=== PATIENT | male | born 1955 | race African-American/Black ===

== ENCOUNTER 2016-07-18 13:57 | Inpatient (IN) | payer OTHER ==
[2016-07-18 18:19] VITALS: BMI 25.9
--- NOTE | 2016-07-18 20:42 | HP ---
CIWA Score - CIWA Score Nausea/Vomitin-No Nausea/No Vomiting Muscle Tremors: 4-Moderate,w/Arms Extend Anxiety: 4-Mod. Anxious/Guarded Agitation: 4-Moderately Restless Paroxysmal Sweats: 3 Orientation: 1-Uncertain about Date Tacttile Disturbances: 0-None Auditory Disturbances: 0-None Visual Disturbances: 0-None Headache: 0-None Present CIWA-Ar Total Score: 16 Admission ROS BHS - HPI Chief Complaint: C/O WITHDRAWAL SX'S. SEEKING DETOX TXMENT. Allergies/Adverse Reactions: Allergies Allergy/AdvReac Type Severity Reaction Status Date / Time No Known Allergies Allergy Verified 07/18/16 19:40 History of Present Illness: 60 Y.O. MALE WITH ALCOHOL AND COCAINE DEPENDENCE ADMITTED TO DETOX. THIS IS CLIENTS FIRST VISIT HERE. STATES LAST DETOX / REHAB TXMENT WAS YEARS AGO. REPORTS LONGEST CLEAN TIME 2.5 YEARS WHILE IN [facility]IDENT[facility]. Exam Limitations: No Limitations - Ebola screening Have you traveled outside of the country in the last 21 days: No Have you had contact with anyone from an Ebola affected area: No Have you been sick,other than usual withdrawal symptoms: No Do you have a fever: No - Review of Systems Constitutional: No Symptoms Reported EENT: reports: No Symptoms Reported Respiratory: reports: No Symptoms reported Cardiac: reports: No Symptoms Reported GI: reports: No Symptoms Reported : reports: No Symptoms Reported Musculoskeletal: reports: No Symptoms Reported Integumentary: reports: No Symptoms Reported Neuro: reports: No Symptoms reported Endocrine: reports: No Symptoms Reported Hematology: reports: No Symptoms Reported Psychiatric: reports: Depressed Other Systems: Reviewed and Negative Patient History - Patient Medical History Hx Anemia: No Hx Asthma: No Hx Chronic Obstructive Pulmonary Disease (COPD): No Hx Cancer: No Hx Cardiac Disorders: No Hx Congestive Heart Failure: No Hx Hypertension: Yes (NOT ON MEDS) Hx Hypercholesterolemia: No Hx Pacemaker: No HX Cerebrovascular Accident: No Hx Seizures: No Hx Dementia: No Hx Diabetes: No Hx Gastrointestinal Disorders: No Hx Liver Disease: No Hx Genitourinary Disorders: No Hx Sexually Transmitted Disorders: No Hx Renal Disease (ESRD): No Hx Thyroid Disease: No Hx Human Immunodeficiency Virus (HIV): No Hx Hepatitis C: No Hx Depression: Yes Hx Suicide Attempt: No Hx Bipolar Disorder: No Hx Schizophrenia: No - Patient Surgical History Past Surgical History: No Hx Neurologic Surgery: No Hx Cataract Extraction: No Hx Cardiac Surgery: No Hx Lung Surgery: No Hx Breast Surgery: No Hx Breast Biopsy: No Hx Abdominal Surgery: No Hx Appendectomy: No Hx Cholecystectomy: No Hx Genitourinary Surgery: No Hx Section: No Hx Orthopedic Surgery: No Anesthesia Reaction: No - PPD History Previous Implant?: Yes Documented Results: Negative w/o proof Implanted On Prior R Admission?: No PPD to be Administered?: Yes - Smoking Cessation Smoking history: Current every day smoker Have you smoked in the past 12 months: Yes Aproximately how many cigarettes per day: 4 Cigars Per Day: 0 Hx Chewing Tobacco Use: No Initiated information on smoking cessation: Yes 'Breaking Loose' booklet given: 07/18/16 - Substance & Tx. History Hx Alcohol Use: Yes Hx Substance Use: Yes Substance Use Type: Alcohol, Cocaine Hx Substance Use Treatment: Yes ([facility]) - Substances Abused Alcohol Route: Oral Frequency: Daily Amount used: liquor- 1 pint, beer- 4 (40oz) Age of first use: 23 Date of Last Use: 07/17/16 Crack Route: Smoking Frequency: Daily Amount used: 2 bags Age of first use: 15 Date of Last Use: 07/16/16 Family Disease History - Family Disease History Family History: Denies Admission Physical Exam S - Vital Signs Vital Signs: Vital Signs - 24 hr 07/18/16 18:17 Temperature 99.2 F Pulse Rate 91 H Respiratory 20 Rate Blood Pressure 189/94 - Physical General Appearance: Yes: Disheveled, Alcohol on Breath, Tremorous, Anxious, Other (UNKEPT) HEENTM: Yes: EOMI, Normocephalic, Normal Voice, [place], Pharynx Normal, Other ( EDENTULOUS) Respiratory: Yes: Chest Non-Tender, Lungs Clear, Normal Breath Sounds, No Respiratory Distress, No Accessory Muscle Use Neck: Yes: No masses,lesions,Nodules, Supple, Trachea in good position Breast: Yes: Breast Exam Deferred Cardiology: Yes: Regular Rhythm, Regular Rate, S1, S2 Abdominal: Yes: Normal Bowel Sounds, Non Tender, Soft Genitourinary: Yes: Within Normal Limits Back: Yes: Normal Inspection Musculoskeletal: Yes: full range of Motion, Gait Steady Extremities: Yes: Normal Capillary Refill, Normal Range of Motion, Non-Tender, Tremors Neurological: Yes: Alert, Motor Strength 5/5 Integumentary: Yes: Dry, Warm, Other (EXTREMELY DRY FLAKING SKIN HYPERPIGMENTED PATCHES TO BLE) Lymphatic: Yes: Within Normal Limits - Diagnostic (1) Alcohol dependence with uncomplicated withdrawal Current Visit: Yes Status: Chronic (2) Cocaine dependence, uncomplicated Current Visit: Yes Status: Chronic (3) Nicotine dependence Current Visit: Yes Status: Chronic Qualifiers: Nicotine product type: cigarettes Substance use status: uncomplicated Qualified Code(s): F17.210 - Nicotine dependence, cigarettes, uncomplicated (4) HTN (hypertension) Current Visit: Yes Status: Chronic Qualifiers: Hypertension type: essential hypertension Qualified Code(s): I10 - Essential (primary) hypertension Cleared for Admission S - Detox or Rehab [facility] Level of Care: Medically Managed Detox Regimen/Protocol: Librium S Breath Alcohol Content Breath Alcohol Content: 0 Urine Drug Screen - Results Drug Screen Negative: No Urine Drug Screen Results: BHUPINDER-Cocaine
[2016-07-18] MEDS ORDERED: P-EPHED 60MG/TRIPROLIDI 2.5MG TABLET PO PRN (20:55)
[2016-07-18] MEDS ORDERED: ACETAMINOPHEN 325 MG TABLET (FP) PO PRN (20:55)
[2016-07-18] MEDS ORDERED: guaiFENesin/D-METHORPHAN HB 10 ML UNIT-DOSE CUPS PO PRN (20:55)
[2016-07-18] MEDS ORDERED: diphenhydrAMINE HCL 50 MG CAPSULE PO PRN (20:55)
[2016-07-18] MEDS ORDERED: NICOTINE POLACRILEX 2 MG GUM BC PRN (20:55)
[2016-07-18] MEDS ORDERED: hydrOXYzine PAMOATE 50 MG CAPSULE (FP) PO PRN (20:55)
[2016-07-18] MEDS ORDERED: MENTHOL/PHENOL 1 EACH UD MM PRN (20:55)
[2016-07-18] MEDS ORDERED: IBUPROFEN 400 MG TABLET (FP) PO PRN (20:55)
[2016-07-18] MEDS ORDERED: LOPERAMIDE HCL 2 MG CAPSULE PO PRN (20:55)
[2016-07-18] MEDS ORDERED: chlordiazePOXIDE HCL 25 MG CAPSULE PO PRN (20:55)
[2016-07-18] MEDS ORDERED: MAGNESIUM HYDROX 2400MG/30ML ORAL SUSPENSION 30 ML CUP PO PRN (20:55)
[2016-07-18] MEDS ORDERED: MAG HYDROX/AL HYDROX/SIMETH 30 ML UNIT-DOSE CUP PO PRN (20:55)
[2016-07-18] MEDS ORDERED: MAGNESIUM CITRATE 300 ML BOTTLE PO PRN (20:55)
[2016-07-18] MEDS ORDERED: cloNIDine HCL 0.1 MG TABLET PO PRN (20:57)
[2016-07-18] MEDS: THIAMINE HCL 100 MG TABLET (FP) PO SCH (21:46)
[2016-07-18] MEDS: NICOTINE 14 MG/24 HOURS TOPICAL PATCH TD SCH (21:46)
[2016-07-18] MEDS: chlordiazePOXIDE HCL 25 MG CAPSULE PO SCH (22:45)
[2016-07-18 23:25] LABS: URINE APPEARANCE CLEAR; URINE BLOOD NEGATIVE (NEGATIVE); URINE COLOR AMBER; URINE GLUCOSE (UA) NEGATIVE (NEGATIVE); URINE KETONE TRACE (NEGATIVE); URINE LEUK ESTERASE NEGATIVE (NEGATIVE); URINE NITRITE NEGATIVE (NEGATIVE); URINE UROBILINOGEN 2.0 E.U/dl E.U./dl (0.2-1.0)
[2016-07-18 23:29] LABS: URINE PROTEIN 3+ (NEGATIVE)
[2016-07-18 23:33] LABS: URINE HYALINE CAST 9 /lpf; URINE MUCUS MANY; URINE RBC 2 /hpf (0-3); URINE WBC 2 /hpf (3-5)
[2016-07-19] MEDS: chlordiazePOXIDE HCL 25 MG CAPSULE PO SCH ×4 (05:38→22:42)
[2016-07-19 10:02] LABS: MCH 30.9 pg (25.7-33.7); MCHC 33.2 g/dl (32.0-35.9); MEAN PLT VOLUME 8.1 fl (7.5-11.1); PLATELET COUNT 217 K/MM3 (134-434); RDW 15.2 % (11.9-15.9); WHITE BLOOD COUNT 6.4 K/mm3 (4.0-10.0)
[2016-07-19] MEDS: PRENATAL VITAMINS W/ FOLIC ACID TABLET (FP) PO SCH (10:33)
[2016-07-19] MEDS: NICOTINE 14 MG/24 HOURS TOPICAL PATCH TD SCH (10:35)
[2016-07-19 10:53] LABS: ALBUMIN 3.1 g/dl (3.4-5.0); ALK PHOS 61 U/L (45-117); ANION GAP 10 (8-16); BILIRUBIN,TOTAL 0.6 mg/dL (0.2-1.0); CALCIUM 8.6 mg/dL (8.5-10.1); CO2 27 mmol/L (21-32); COCKROFT - GAULT 92.95; CREATININE 0.9 mg/dL (0.7-1.3); GLUCOSE,RANDOM 103 mg/dL (74-106); SGOT/AST 30 U/L (15-37); SGPT/ALT 26 U/L (12-78); TOT PROT 6.5 g/dl (6.4-8.2)
[2016-07-19] MEDS ORDERED: cloNIDine HCL 0.1 MG TABLET PO PRN (11:23)
--- NOTE | 2016-07-19 11:26 | PN ---
S CIWA - CIWA Score Nausea/Vomitin-No Nausea/No Vomiting Muscle Tremors: 4-Moderate,w/Arms Extend Anxiety: 4-Mod. Anxious/Guarded Agitation: 3 Paroxysmal Sweats: 3 Orientation: 0-Oriented Tacttile Disturbances: 0-None Auditory Disturbances: 0-None Visual Disturbances: 0-None Headache: 0-None Present CIWA-Ar Total Score: 14 BHS Progress Note (SOAP) Subjective: Anxiety,tremors,sweating,interrupted sleep,restless Objective: 07/19/16 11:25 Vital Signs - 8 hr 07/19/16 07/19/16 07/19/16 03:30 06:44 07:07 Temperature 98.9 F 98.9 F Pulse Rate 77 77 Respiratory 18 18 18 Rate Blood Pressure 182/99 137/78 07/19/16 09:50 Temperature 96.4 F L Pulse Rate 80 Respiratory 18 Rate Blood Pressure 150/77 Laboratory Tests 07/18/16 07/19/16 07/19/16 22:02 08:00 08:00 WBC 6.4 RBC 3.71 L Hgb 11.4 L Hct 34.5 L MCV 93.0 MCHC 33.2 RDW 15.2 Plt Count 217 MPV 8.1 Sodium 140 Potassium 3.3 L Chloride 103 Carbon Dioxide 27 Anion Gap 10 BUN 14 Creatinine 0.9 Creat Clearance w eGFR > 60 Random Glucose 103 Calcium 8.6 Total Bilirubin 0.6 AST 30 ALT 26 Alkaline Phosphatase 61 Total Protein 6.5 Albumin 3.1 L Urine Color Kimmy Urine Appearance Clear Urine pH 5.0 Ur Specific [place] 1.034 Urine Protein 3+ H Urine Glucose (UA) Negative Urine Ketones Trace H Urine Blood Negative Urine Nitrite Negative Urine Bilirubin 2.0 Urine Urobilinogen 2.0 e.u/dl Ur Leukocyte Esterase Negative Urine RBC 2 Urine WBC 2 Ur Epithelial Cells Rare Hyaline Casts 9 Urine Mucus Many labs noted Assessment: 07/19/16 11:25 Withdrawal sx. Plan: Continue detox
--- NOTE | 2016-07-19 12:45 | CONSULT ---
[facility] Psychiatric Consult - Data Date of interview: 07/19/16 Admission source: [facility] Identifying data: First admission to [facility] for this 60 y/o AA male seeking detox treatment for alcohol and cocaine (crack) dependence.Patient is single without children,domiciled,unemployed and supported on Public Assistance. Substance Abuse History: - Smoking Cessation. Smoking history: Current every day smoker. Have you smoked in the past 12 months: Yes. Aproximately how many cigarettes per day: 4. Cigars Per Day: 0. Hx Chewing Tobacco Use: No. Initiated information on smoking cessation: Yes. 'Breaking Loose' booklet given : 07/18/16. - Substance & Tx. History. Hx Alcohol Use: Yes. Hx Substance Use : Yes. Substance Use Type: Alcohol, Cocaine. Hx Substance Use Treatment: Yes ( [facility]). - Substances Abused. Alcohol. Route: Oral. Frequency: Daily. Amount used: liquor- 1 pint, beer- 4 (40oz). Age of first use: 23. Date of Last Use: 07/17/16. Crack. Route: Smoking. Frequency: Daily. Amount used: 2 bags. Age of first use: 15. Date of Last Use: 07/16/16. Confirmed by patient. Medical History: Hypertension. Psychiatric History: Patient denies. Physical/Sexual Abuse/Trauma History: No history. Additional Comment: Urine Drug Screen Results: BHUPINDER-Cocaine.Noted. Mental Status Exam - Mental Status Exam Alert and Oriented to: Time, Place, Person Cognitive Function: Grossly Intact Patient Appearance: Unkempt, Disheveled Mood: Withdrawn, Hopeful Affect: Mood Congruent Patient Behavior: Fatigued, Appropriate, Cooperative Speech Pattern: Clear Voice Loudness: Normal Thought Process: Goal Oriented Thought Disorder: Not Present Hallucinations: Denies Suicidal Ideation: Denies Homicidal Ideation: Denies Insight/Judgement: Poor Sleep: Well Appetite: Good Muscle strength/Tone: Normal Gait/Station: Normal Psychiatric Findings - Problem List ([place] 1, 2,3) (1) Alcohol dependence with uncomplicated withdrawal Current Visit: Yes Status: Acute (2) Cocaine dependence, uncomplicated Current Visit: Yes Status: Acute (3) Nicotine dependence Current Visit: Yes Status: Acute Qualifiers: Nicotine product type: cigarettes Substance use status: uncomplicated Qualified Code(s): F17.210 - Nicotine dependence, cigarettes, uncomplicated (4) HTN (hypertension) Current Visit: Yes Status: Chronic Qualifiers: Hypertension type: essential hypertension Qualified Code(s): I10 - Essential (primary) hypertension - Initial Treatment Plan Initial Treatment Plan: Psychoeducation.Detoxification.Observation.
[2016-07-19] MEDS: POTASSIUM CHLORIDE TABS 20 MEQ TABLET.ER (FP) PO SCH ×2 (13:00→22:42)
[2016-07-19] MEDS: amLODIPine BESYLATE 10 MG TABLET (FP) PO SCH (13:00)
--- NOTE | 2016-07-19 16:14 | EKG ---
Test Reason : Blood Pressure : / mmHG Vent. Rate : 078 BPM Atrial Rate : 078 BPM P-R Int : 158 ms QRS Dur : 088 ms QT Int : 398 ms P-R-T Axes : 044 039 034 degrees QTc Int : 453 ms NORMAL SINUS RHYTHM VOLTAGE CRITERIA FOR LEFT VENTRICULAR HYPERTROPHY ABNORMAL ECG NO PREVIOUS ECGS AVAILABLE Confirmed by CHERI JERONIMO MD ([id number]) on 07/19/2016 4:14:22 PM Referred By: Confirmed By:CHERI JERONIMO MD
[2016-07-19] MEDS: THIAMINE HCL 100 MG TABLET (FP) PO SCH (22:42)
[2016-07-20] MEDS: chlordiazePOXIDE HCL 25 MG CAPSULE PO SCH ×3 (05:37→17:19)
[2016-07-20] MEDS: amLODIPine BESYLATE 10 MG TABLET (FP) PO SCH (10:33)
[2016-07-20] MEDS: NICOTINE 14 MG/24 HOURS TOPICAL PATCH TD SCH (10:33)
[2016-07-20] MEDS: PRENATAL VITAMINS W/ FOLIC ACID TABLET (FP) PO SCH (10:33)
[2016-07-20] MEDS: POTASSIUM CHLORIDE TABS 20 MEQ TABLET.ER (FP) PO SCH ×2 (10:33→22:38)
--- NOTE | 2016-07-20 12:28 | PN ---
S CIWA - CIWA Score Nausea/Vomitin-No Nausea/No Vomiting Muscle Tremors: 4-Moderate,w/Arms Extend Anxiety: 3 Agitation: 3 Paroxysmal Sweats: 3 Orientation: 0-Oriented Tacttile Disturbances: 0-None Auditory Disturbances: 0-None Visual Disturbances: 0-None Headache: 0-None Present CIWA-Ar Total Score: 13 BHS Progress Note (SOAP) Subjective: Anxiety,tremors,sweating,interrupted sleep,restless Objective: 07/20/16 12:27 Vital Signs - 8 hr 07/20/16 07/20/16 06:47 09:33 Temperature 98.4 F 98.3 F Pulse Rate 77 99 H Respiratory 18 20 Rate Blood Pressure 157/94 146/88 Laboratory Tests 07/18/16 07/19/16 07/19/16 22:02 08:00 08:00 WBC 6.4 RBC 3.71 L Hgb 11.4 L Hct 34.5 L MCV 93.0 MCHC 33.2 RDW 15.2 Plt Count 217 MPV 8.1 Sodium 140 Potassium 3.3 L Chloride 103 Carbon Dioxide 27 Anion Gap 10 BUN 14 Creatinine 0.9 Creat Clearance w eGFR > 60 Random Glucose 103 Calcium 8.6 Total Bilirubin 0.6 AST 30 ALT 26 Alkaline Phosphatase 61 Total Protein 6.5 Albumin 3.1 L Urine Color Kimmy Urine Appearance Clear Urine pH 5.0 Ur Specific [place] 1.034 Urine Protein 3+ H Urine Glucose (UA) Negative Urine Ketones Trace H Urine Blood Negative Urine Nitrite Negative Urine Bilirubin 2.0 Urine Urobilinogen 2.0 e.u/dl Ur Leukocyte Esterase Negative Urine RBC 2 Urine WBC 2 Ur Epithelial Cells Rare Hyaline Casts 9 Urine Mucus Many RPR Titer 07/19/16 08:00 WBC RBC Hgb Hct MCV MCHC RDW Plt Count MPV Sodium Potassium Chloride Carbon Dioxide Anion Gap BUN Creatinine Creat Clearance w eGFR Random Glucose Calcium Total Bilirubin AST ALT Alkaline Phosphatase Total Protein Albumin Urine Color Urine Appearance Urine pH Ur Specific [place] Urine Protein Urine Glucose (UA) Urine Ketones Urine Blood Urine Nitrite Urine Bilirubin Urine Urobilinogen Ur Leukocyte Esterase Urine RBC Urine WBC Ur Epithelial Cells Hyaline Casts Urine Mucus RPR Titer Nonreactive labs noted start k-dur Assessment: 07/20/16 12:27 Withdrawal sx. Plan: Continue detox
[2016-07-20 16:40] LABS: URINE APPEARANCE CLEAR; URINE BILIRUBIN NEGATIVE (NEGATIVE); URINE BLOOD NEGATIVE (NEGATIVE); URINE COLOR YELLOW; URINE GLUCOSE (UA) NEGATIVE (NEGATIVE); URINE KETONE NEGATIVE (NEGATIVE); URINE LEUK ESTERASE NEGATIVE (NEGATIVE); URINE NITRITE NEGATIVE (NEGATIVE); URINE PROTEIN NEGATIVE (NEGATIVE); URINE UROBILINOGEN NEGATIVE E.U./dl (0.2-1.0)
[2016-07-20] MEDS: THIAMINE HCL 100 MG TABLET (FP) PO SCH (22:37)
[2016-07-20] MEDS: chlordiazePOXIDE 5 MG CAPSULE PO SCH (22:37)
[2016-07-21] MEDS: chlordiazePOXIDE 5 MG CAPSULE PO SCH ×3 (06:24→17:25)
--- NOTE | 2016-07-21 10:32 | PN ---
BHS Progress Note (SOAP) Subjective: Anxiety,tremors,sweating,interrupted sleep,restless Objective: 07/21/16 10:31 Vital Signs - 8 hr 07/21/16 07/21/16 07/21/16 03:30 07:02 07:55 Temperature 97.7 F Pulse Rate 86 99 H Respiratory 18 20 Rate Blood Pressure 161/92 165/86 07/21/16 10:11 Temperature 98.7 F Pulse Rate 94 H Respiratory 20 Rate Blood Pressure 144/81 Laboratory Last Values WBC 6.4 K/mm3 (4.0-10.0) 07/19/16 08:00 RBC 3.71 M/mm3 (4.00-5.60) L 07/19/16 08:00 Hgb 11.4 GM/dL (11.7-16.9) L 07/19/16 08:00 Hct 34.5 % (35.4-49) L 07/19/16 08:00 MCV 93.0 fl (80-96) 07/19/16 08:00 MCHC 33.2 g/dl (32.0-35.9) 07/19/16 08:00 RDW 15.2 % (11.9-15.9) 07/19/16 08:00 Plt Count 217 K/MM3 (134-434) 07/19/16 08:00 MPV 8.1 fl (7.5-11.1) 07/19/16 08:00 Sodium 140 mmol/L (136-145) 07/19/16 08:00 Potassium 3.3 mmol/L (3.5-5.1) L 07/19/16 08:00 Chloride 103 mmol/L (98-107) 07/19/16 08:00 Carbon Dioxide 27 mmol/L (21-32) 07/19/16 08:00 Anion Gap 10 (8-16) 07/19/16 08:00 BUN 14 mg/dL (7-18) 07/19/16 08:00 Creatinine 0.9 mg/dL (0.7-1.3) 07/19/16 08:00 Creat Clearance w eGFR > 60 (>60) 07/19/16 08:00 Random Glucose 103 mg/dL (74-106) 07/19/16 08:00 Calcium 8.6 mg/dL (8.5-10.1) 07/19/16 08:00 Total Bilirubin 0.6 mg/dL (0.2-1.0) 07/19/16 08:00 AST 30 U/L (15-37) 07/19/16 08:00 ALT 26 U/L (12-78) 07/19/16 08:00 Alkaline Phosphatase 61 U/L (45-117) 07/19/16 08:00 Total Protein 6.5 g/dl (6.4-8.2) 07/19/16 08:00 Albumin 3.1 g/dl (3.4-5.0) L 07/19/16 08:00 Urine Color Yellow 07/20/16 16:32 Urine Appearance Clear 07/20/16 16:32 Urine pH 5.0 (5.0-8.0) 07/20/16 16:32 Ur Specific [place] 1.019 (1.001-1.035) 07/20/16 16:32 Urine Protein Negative (NEGATIVE) 07/20/16 16:32 Urine Glucose (UA) Negative (NEGATIVE) 07/20/16 16:32 Urine Ketones Negative (NEGATIVE) 07/20/16 16:32 Urine Blood Negative (NEGATIVE) 07/20/16 16:32 Urine Nitrite Negative (NEGATIVE) 07/20/16 16:32 Urine Bilirubin Negative (NEGATIVE) 07/20/16 16:32 Urine Urobilinogen Negative E.U./dl (0.2-1.0) 07/20/16 16:32 Ur Leukocyte Esterase Negative (NEGATIVE) 07/20/16 16:32 Urine RBC 2 /hpf (0-3) 07/18/16 22:02 Urine WBC 2 /hpf (3-5) 07/18/16 22:02 Ur Epithelial Cells Rare /hpf (FEW) 07/18/16 22:02 Hyaline Casts 9 /lpf 07/18/16 22:02 Urine Mucus Many 07/18/16 22:02 RPR Titer Nonreactive (NONREACTIVE) 07/19/16 08:00 labs noted Assessment: 07/21/16 10:32 Withdrawal sx. Plan: Continue detox
[2016-07-21] MEDS: amLODIPine BESYLATE 10 MG TABLET (FP) PO SCH (10:50)
[2016-07-21] MEDS: PRENATAL VITAMINS W/ FOLIC ACID TABLET (FP) PO SCH (10:50)
[2016-07-21] MEDS: POTASSIUM CHLORIDE TABS 20 MEQ TABLET.ER (FP) PO SCH ×2 (10:50→22:43)
[2016-07-21] MEDS: NICOTINE 14 MG/24 HOURS TOPICAL PATCH TD SCH (10:53)
[2016-07-21] MEDS: THIAMINE HCL 100 MG TABLET (FP) PO SCH (22:43)
[2016-07-21] MEDS: chlordiazePOXIDE HCL 10 MG CAPSULE PO SCH (22:43)
[2016-07-22] MEDS: chlordiazePOXIDE HCL 10 MG CAPSULE PO SCH ×2 (06:12→11:41)
--- NOTE | 2016-07-22 09:30 | DS ---
[facility] Detox Discharge Summary Admission Date: 07/18/16 Discharge Date: 07/22/16 - History Present History: Alcohol Dependence, Cocaine Dependence Additional Comments: DETOX COMPLETED.ALERT O X 3, NAD. Pertinent Past History: HTN - Physical Exam Results Vital Signs: Vital Signs Temperature 98.0 F 07/22/16 06:55 Pulse Rate 84 07/22/16 06:55 Respiratory Rate 18 07/22/16 06:55 Blood Pressure 154/89 07/22/16 06:55 O2 Sat by Pulse Oximetry (%) Pertinent Admission Physical Exam Findings: WITHDRAWAL SX Laboratory Last Values WBC 6.4 K/mm3 (4.0-10.0) 07/19/16 08:00 RBC 3.71 M/mm3 (4.00-5.60) L 07/19/16 08:00 Hgb 11.4 GM/dL (11.7-16.9) L 07/19/16 08:00 Hct 34.5 % (35.4-49) L 07/19/16 08:00 MCV 93.0 fl (80-96) 07/19/16 08:00 MCHC 33.2 g/dl (32.0-35.9) 07/19/16 08:00 RDW 15.2 % (11.9-15.9) 07/19/16 08:00 Plt Count 217 K/MM3 (134-434) 07/19/16 08:00 MPV 8.1 fl (7.5-11.1) 07/19/16 08:00 Sodium 140 mmol/L (136-145) 07/19/16 08:00 Potassium 3.3 mmol/L (3.5-5.1) L 07/19/16 08:00 Chloride 103 mmol/L (98-107) 07/19/16 08:00 Carbon Dioxide 27 mmol/L (21-32) 07/19/16 08:00 Anion Gap 10 (8-16) 07/19/16 08:00 BUN 14 mg/dL (7-18) 07/19/16 08:00 Creatinine 0.9 mg/dL (0.7-1.3) 07/19/16 08:00 Creat Clearance w eGFR > 60 (>60) 07/19/16 08:00 Random Glucose 103 mg/dL (74-106) 07/19/16 08:00 Calcium 8.6 mg/dL (8.5-10.1) 07/19/16 08:00 Total Bilirubin 0.6 mg/dL (0.2-1.0) 07/19/16 08:00 AST 30 U/L (15-37) 07/19/16 08:00 ALT 26 U/L (12-78) 07/19/16 08:00 Alkaline Phosphatase 61 U/L (45-117) 07/19/16 08:00 Total Protein 6.5 g/dl (6.4-8.2) 07/19/16 08:00 Albumin 3.1 g/dl (3.4-5.0) L 07/19/16 08:00 Urine Color Yellow 07/20/16 16:32 Urine Appearance Clear 07/20/16 16:32 Urine pH 5.0 (5.0-8.0) 07/20/16 16:32 Ur Specific [place] 1.019 (1.001-1.035) 07/20/16 16:32 Urine Protein Negative (NEGATIVE) 07/20/16 16:32 Urine Glucose (UA) Negative (NEGATIVE) 07/20/16 16:32 Urine Ketones Negative (NEGATIVE) 07/20/16 16:32 Urine Blood Negative (NEGATIVE) 07/20/16 16:32 Urine Nitrite Negative (NEGATIVE) 07/20/16 16:32 Urine Bilirubin Negative (NEGATIVE) 07/20/16 16:32 Urine Urobilinogen Negative E.U./dl (0.2-1.0) 07/20/16 16:32 Ur Leukocyte Esterase Negative (NEGATIVE) 07/20/16 16:32 Urine RBC 2 /hpf (0-3) 07/18/16 22:02 Urine WBC 2 /hpf (3-5) 07/18/16 22:02 Ur Epithelial Cells Rare /hpf (FEW) 07/18/16 22:02 Hyaline Casts 9 /lpf 07/18/16 22:02 Urine Mucus Many 07/18/16 22:02 RPR Titer Nonreactive (NONREACTIVE) 07/19/16 08:00 KDUR REPLACEMENT TREATMENT GIVEN. - Treatment Hospital Course: Detox Protocol Followed, Detoxed Safely, Responded well, Discharged Condition Good, Rehab Referral Accepted Patient has Accepted a Rehab Referral to: [facility] - Medication Discharge Medications: Ambulatory Orders NK [No Known Home Medication] 07/18/16 - Diagnosis (1) Alcohol dependence with uncomplicated withdrawal Current Visit: Yes Status: Acute (2) Cocaine dependence, uncomplicated Current Visit: Yes Status: Acute (3) Hypokalemia Current Visit: Yes Status: Acute (4) Nicotine dependence Current Visit: Yes Status: Acute Qualifiers: Nicotine product type: cigarettes Substance use status: in withdrawal Qualified Code(s): F17.213 - Nicotine dependence, cigarettes, with withdrawal (5) HTN (hypertension) Current Visit: Yes Status: Chronic Qualifiers: Hypertension type: essential hypertension Qualified Code(s): I10 - Essential (primary) hypertension - AMA Did Patient Leave Against Medical Advice: No
[2016-07-22 10:37] VITALS: BP 129/77; PULSE 101; TEMP 97.5
[2016-07-22] MEDS: PRENATAL VITAMINS W/ FOLIC ACID TABLET (FP) PO SCH (10:55)
[2016-07-22] MEDS: POTASSIUM CHLORIDE TABS 20 MEQ TABLET.ER (FP) PO SCH (10:56)
[2016-07-22] MEDS: amLODIPine BESYLATE 10 MG TABLET (FP) PO SCH (10:56)
[2016-07-22] MEDS: NICOTINE 14 MG/24 HOURS TOPICAL PATCH TD SCH (10:56)
== END 2016-07-22 12:45 | disposition other institution (70) | DRG 774 ==
LOC: YASAS 13:57 → Y3N 19:52
PROVIDERS: ADMIT Internal Medicine; ATTEND Internal Medicine
PROC: HZ2ZZZZ Detoxification Services for Substance Abuse Treatment (ICD-10-PCS; principal; 2016-07-22)
DX: F10.230 Alcohol dependence with withdrawal, uncomplicated (principal); F14.20 Cocaine dependence, uncomplicated; F17.210 Nicotine dependence, cigarettes, uncomplicated; E87.6 Hypokalemia; I10 Essential (primary) hypertension
CPT/HCPCS: 36415; 80053; 81003; 81015; 85027; 86593; 93005; 93010

== ENCOUNTER 2016-07-22 12:53 | Inpatient (IN) | payer OTHER ==
--- NOTE | 2016-07-22 14:06 | HP ---
Psychiatrist Admission - Data Date of interview: 07/22/16 Admission source: 6N Identifying data: This is the first [facility] admission for this 60 years old Black male, unemployed on public assistance, domiciled Medical History: Significant for Hypertension. Smokes 4 cigarettes daily Psychiatric History: Denies history of previous psychiatric treatment Physical/Sexual Abuse/Trauma History: Denies history of emotional, physical or sexual abuse as well as DV relationship Additional Comment: Reports history of 3-4 misdemeanor arrests. Denies being on probation bat present Allergies/Adverse Reactions: Allergies Allergy/AdvReac Type Severity Reaction Status Date / Time No Known Allergies Allergy Verified 07/18/16 19:40 Date of last physical exam: 07/18/16 Concur with the findings of this exam: Yes - Substance Abuse/Tx History Hx Alcohol Use: Yes Hx Substance Use: Yes Substance Use Type: Alcohol (Started drinking alcohol at age 23, consumes one pint of liquor & 4x 40oz of beer daily. Last drink on 07/17/16), Cocaine (Started smoking crack cocaine at age 15, consumes 2 bags daily. Last smoked on 07/16/16) Hx Substance Use Treatment: Yes (2 previous detox & 3 inpt rehab) - Admission Criteria Previous failed treatment: Yes Poor recovery environment: Yes Comorbidities: Yes Lacks judgement: Yes Mental Status Exam - Mental Status Exam Alert and Oriented to: Time, Place, Person Cognitive Function: Fair Patient Appearance: Disheveled Mood: Hopeful, Euthymic Patient Behavior: Cooperative Speech Pattern: Clear Voice Loudness: Normal Thought Process: Intact Thought Disorder: Not Present Hallucinations: Denies Suicidal Ideation: Denies Homicidal Ideation: Denies Insight/Judgement: Fair Sleep: Well Appetite: Good Muscle strength/Tone: Normal Gait/Station: Normal Psychiatric Findings - Problem List ([place] 1, 2,3) (1) Alcohol dependence with uncomplicated withdrawal Current Visit: No Status: Acute (2) Cocaine dependence, uncomplicated Current Visit: No Status: Acute (3) Nicotine dependence Current Visit: No Status: Acute Qualifiers: Nicotine product type: cigarettes Substance use status: in withdrawal Qualified Code(s): F17.213 - Nicotine dependence, cigarettes, with withdrawal (4) HTN (hypertension) Current Visit: No Status: Chronic Qualifiers: Hypertension type: essential hypertension Qualified Code(s): I10 - Essential (primary) hypertension - Initial Treatment Plan Initial Treatment Plan: Monitor progress
[2016-07-22] MEDS ORDERED: ACETAMINOPHEN 325 MG TABLET (FP) PO PRN (15:57)
[2016-07-22] MEDS ORDERED: LOPERAMIDE HCL 2 MG CAPSULE PO PRN (15:57)
[2016-07-22] MEDS ORDERED: guaiFENesin/D-METHORPHAN HB 10 ML UNIT-DOSE CUPS PO PRN (15:57)
[2016-07-22] MEDS ORDERED: MENTHOL/PHENOL 1 EACH UD MM PRN (15:57)
[2016-07-22] MEDS ORDERED: P-EPHED 60MG/TRIPROLIDI 2.5MG TABLET PO PRN (15:57)
[2016-07-22] MEDS ORDERED: MAG HYDROX/AL HYDROX/SIMETH 30 ML UNIT-DOSE CUP PO PRN (15:57)
[2016-07-22] MEDS ORDERED: MAGNESIUM HYDROX 2400MG/30ML ORAL SUSPENSION 30 ML CUP PO PRN (15:57)
[2016-07-22] MEDS ORDERED: hydrOXYzine PAMOATE 50 MG CAPSULE (FP) PO PRN (15:57)
[2016-07-22] MEDS ORDERED: IBUPROFEN 400 MG TABLET (FP) PO PRN (15:57)
[2016-07-22] MEDS ORDERED: MAGNESIUM CITRATE 300 ML BOTTLE PO PRN (15:57)
--- NOTE | 2016-07-22 16:04 | HP ---
ANGÉLICA MASON Rehab Assess/Revision - Admission History Admitted to Rehab from: [facility] Date of Admission to Rehab: 07/22/16 - Vital signs Vital Signs: Vital Signs Period Temp Pulse Resp BP Sys/Vasquez Pulse Ox Last 24 Hr 99.3 F 97 138/72 - Findings Detox History & Physical reviewed: Yes Concur with findings: Yes Comments/Additional Findings: for rehab as protocol
[2016-07-22] MEDS: THIAMINE HCL 100 MG TABLET (FP) PO SCH (21:49)
[2016-07-23] MEDS: PRENATAL VITAMINS W/ FOLIC ACID TABLET (FP) PO SCH (10:07)
[2016-07-23] MEDS: THIAMINE HCL 100 MG TABLET (FP) PO SCH (23:17)
[2016-07-24] MEDS: PRENATAL VITAMINS W/ FOLIC ACID TABLET (FP) PO SCH (09:53)
[2016-07-24] MEDS: THIAMINE HCL 100 MG TABLET (FP) PO SCH (21:35)
[2016-07-25] MEDS: PRENATAL VITAMINS W/ FOLIC ACID TABLET (FP) PO SCH (09:49)
--- NOTE | 2016-07-25 11:22 | PN ---
S Progress Note Note: history of htn on medication,last taken 2 years ago,will give hydrochlorothiazide 25 mgs po daily,will repeat cmp in am
[2016-07-25] MEDS: HYDROCHLOROTHIAZIDE 25 MG TABLET (FP) PO SCH (12:01)
[2016-07-25] MEDS: THIAMINE HCL 100 MG TABLET (FP) PO SCH ×2 (22:26→22:38)
[2016-07-26] MEDS: HYDROCHLOROTHIAZIDE 25 MG TABLET (FP) PO SCH (09:53)
[2016-07-26] MEDS: PRENATAL VITAMINS W/ FOLIC ACID TABLET (FP) PO SCH (09:53)
[2016-07-26 11:01] LABS: ALBUMIN 3.9 g/dl (3.4-5.0); ALK PHOS 67 U/L (45-117); ANION GAP 10 (8-16); BILIRUBIN,TOTAL 0.2 mg/dL (0.2-1.0); CALCIUM 9.6 mg/dL (8.5-10.1); CO2 29 mmol/L (21-32); COCKROFT - GAULT 87.69; GLUCOSE,RANDOM 104 mg/dL (74-106); SGOT/AST 30 U/L (15-37); SGPT/ALT 38 U/L (12-78); TOT PROT 7.8 g/dl (6.4-8.2)
[2016-07-26] MEDS: THIAMINE HCL 100 MG TABLET (FP) PO SCH (21:09)
[2016-07-27] MEDS: PRENATAL VITAMINS W/ FOLIC ACID TABLET (FP) PO SCH (10:00)
[2016-07-27] MEDS: HYDROCHLOROTHIAZIDE 25 MG TABLET (FP) PO SCH (10:00)
[2016-07-27] MEDS: THIAMINE HCL 100 MG TABLET (FP) PO SCH (21:40)
[2016-07-27] MEDS: diphenhydrAMINE HCL 50 MG CAPSULE PO PRN (21:40)
[2016-07-28] MEDS: PRENATAL VITAMINS W/ FOLIC ACID TABLET (FP) PO SCH (10:26)
[2016-07-28] MEDS: HYDROCHLOROTHIAZIDE 25 MG TABLET (FP) PO SCH (10:26)
[2016-07-28] MEDS: diphenhydrAMINE HCL 50 MG CAPSULE PO PRN (21:39)
[2016-07-28] MEDS: THIAMINE HCL 100 MG TABLET (FP) PO SCH (21:39)
[2016-07-29] MEDS: HYDROCHLOROTHIAZIDE 25 MG TABLET (FP) PO SCH (09:47)
[2016-07-29] MEDS: PRENATAL VITAMINS W/ FOLIC ACID TABLET (FP) PO SCH (09:47)
[2016-07-29] MEDS: THIAMINE HCL 100 MG TABLET (FP) PO SCH (21:51)
[2016-07-29] MEDS: diphenhydrAMINE HCL 50 MG CAPSULE PO PRN (21:51)
[2016-07-30] MEDS: PRENATAL VITAMINS W/ FOLIC ACID TABLET (FP) PO SCH (09:54)
[2016-07-30] MEDS: HYDROCHLOROTHIAZIDE 25 MG TABLET (FP) PO SCH (09:54)
[2016-07-30] MEDS: diphenhydrAMINE HCL 50 MG CAPSULE PO PRN (21:38)
[2016-07-30] MEDS: THIAMINE HCL 100 MG TABLET (FP) PO SCH (21:38)
[2016-07-31] MEDS: HYDROCHLOROTHIAZIDE 25 MG TABLET (FP) PO SCH (09:49)
[2016-07-31] MEDS: PRENATAL VITAMINS W/ FOLIC ACID TABLET (FP) PO SCH (09:49)
[2016-07-31] MEDS: THIAMINE HCL 100 MG TABLET (FP) PO SCH (22:14)
[2016-08-01] MEDS: HYDROCHLOROTHIAZIDE 25 MG TABLET (FP) PO SCH (09:50)
[2016-08-01] MEDS: PRENATAL VITAMINS W/ FOLIC ACID TABLET (FP) PO SCH (09:50)
[2016-08-01] MEDS: THIAMINE HCL 100 MG TABLET (FP) PO SCH (21:36)
[2016-08-01] MEDS: diphenhydrAMINE HCL 50 MG CAPSULE PO PRN (21:36)
[2016-08-02] MEDS: PRENATAL VITAMINS W/ FOLIC ACID TABLET (FP) PO SCH (10:31)
[2016-08-02] MEDS: HYDROCHLOROTHIAZIDE 25 MG TABLET (FP) PO SCH (10:31)
[2016-08-02] MEDS: diphenhydrAMINE HCL 50 MG CAPSULE PO PRN (21:48)
[2016-08-02] MEDS: THIAMINE HCL 100 MG TABLET (FP) PO SCH (21:48)
[2016-08-03] MEDS: HYDROCHLOROTHIAZIDE 25 MG TABLET (FP) PO SCH (10:04)
[2016-08-03] MEDS: PRENATAL VITAMINS W/ FOLIC ACID TABLET (FP) PO SCH (10:04)
[2016-08-03] MEDS: THIAMINE HCL 100 MG TABLET (FP) PO SCH (21:41)
[2016-08-03] MEDS: diphenhydrAMINE HCL 50 MG CAPSULE PO PRN (21:41)
[2016-08-04] MEDS: HYDROCHLOROTHIAZIDE 25 MG TABLET (FP) PO SCH (10:38)
[2016-08-04] MEDS: PRENATAL VITAMINS W/ FOLIC ACID TABLET (FP) PO SCH (10:38)
[2016-08-04] MEDS: diphenhydrAMINE HCL 50 MG CAPSULE PO PRN (21:33)
[2016-08-04] MEDS: THIAMINE HCL 100 MG TABLET (FP) PO SCH (21:33)
[2016-08-05] MEDS: PRENATAL VITAMINS W/ FOLIC ACID TABLET (FP) PO SCH (10:36)
[2016-08-05] MEDS: HYDROCHLOROTHIAZIDE 25 MG TABLET (FP) PO SCH (10:36)
[2016-08-05] MEDS: THIAMINE HCL 100 MG TABLET (FP) PO SCH (21:43)
[2016-08-05] MEDS: diphenhydrAMINE HCL 50 MG CAPSULE PO PRN (21:43)
[2016-08-06] MEDS: PRENATAL VITAMINS W/ FOLIC ACID TABLET (FP) PO SCH (10:26)
[2016-08-06] MEDS: HYDROCHLOROTHIAZIDE 25 MG TABLET (FP) PO SCH (10:26)
[2016-08-06] MEDS: diphenhydrAMINE HCL 50 MG CAPSULE PO PRN (21:39)
[2016-08-06] MEDS: THIAMINE HCL 100 MG TABLET (FP) PO SCH (21:39)
[2016-08-07] MEDS: HYDROCHLOROTHIAZIDE 25 MG TABLET (FP) PO SCH (10:27)
[2016-08-07] MEDS: PRENATAL VITAMINS W/ FOLIC ACID TABLET (FP) PO SCH (10:27)
[2016-08-07] MEDS: diphenhydrAMINE HCL 50 MG CAPSULE PO PRN (21:33)
[2016-08-07] MEDS: THIAMINE HCL 100 MG TABLET (FP) PO SCH (21:33)
[2016-08-08] MEDS: PRENATAL VITAMINS W/ FOLIC ACID TABLET (FP) PO SCH (10:31)
[2016-08-08] MEDS: HYDROCHLOROTHIAZIDE 25 MG TABLET (FP) PO SCH (10:31)
[2016-08-08] MEDS: diphenhydrAMINE HCL 50 MG CAPSULE PO PRN (21:47)
[2016-08-08] MEDS: THIAMINE HCL 100 MG TABLET (FP) PO SCH (21:47)
[2016-08-09] MEDS: PRENATAL VITAMINS W/ FOLIC ACID TABLET (FP) PO SCH (10:34)
[2016-08-09] MEDS: HYDROCHLOROTHIAZIDE 25 MG TABLET (FP) PO SCH (10:34)
[2016-08-09] MEDS: diphenhydrAMINE HCL 50 MG CAPSULE PO PRN (21:06)
[2016-08-09] MEDS: THIAMINE HCL 100 MG TABLET (FP) PO SCH (21:06)
[2016-08-10] MEDS: PRENATAL VITAMINS W/ FOLIC ACID TABLET (FP) PO SCH (10:36)
[2016-08-10] MEDS: HYDROCHLOROTHIAZIDE 25 MG TABLET (FP) PO SCH (10:37)
[2016-08-10] MEDS: THIAMINE HCL 100 MG TABLET (FP) PO SCH (21:18)
[2016-08-10] MEDS: diphenhydrAMINE HCL 50 MG CAPSULE PO PRN (21:18)
[2016-08-11] MEDS: HYDROCHLOROTHIAZIDE 25 MG TABLET (FP) PO SCH (10:12)
[2016-08-11] MEDS: PRENATAL VITAMINS W/ FOLIC ACID TABLET (FP) PO SCH (10:12)
[2016-08-11] MEDS: THIAMINE HCL 100 MG TABLET (FP) PO SCH (22:17)
[2016-08-11] MEDS: diphenhydrAMINE HCL 50 MG CAPSULE PO PRN (22:17)
[2016-08-12] MEDS: PRENATAL VITAMINS W/ FOLIC ACID TABLET (FP) PO SCH (10:36)
[2016-08-12] MEDS: HYDROCHLOROTHIAZIDE 25 MG TABLET (FP) PO SCH (10:36)
[2016-08-12] MEDS: diphenhydrAMINE HCL 50 MG CAPSULE PO PRN (21:59)
[2016-08-12] MEDS: THIAMINE HCL 100 MG TABLET (FP) PO SCH (22:00)
[2016-08-13] MEDS ORDERED: PT OWN MED DRAWER 7, Y5N ONE (09:18)
[2016-08-13] MEDS: HYDROCHLOROTHIAZIDE 25 MG TABLET (FP) PO SCH (10:06)
[2016-08-13] MEDS: PRENATAL VITAMINS W/ FOLIC ACID TABLET (FP) PO SCH (10:06)
[2016-08-13] MEDS: diphenhydrAMINE HCL 50 MG CAPSULE PO PRN (21:59)
[2016-08-13] MEDS: THIAMINE HCL 100 MG TABLET (FP) PO SCH (21:59)
[2016-08-14] MEDS: HYDROCHLOROTHIAZIDE 25 MG TABLET (FP) PO SCH (10:16)
[2016-08-14] MEDS: PRENATAL VITAMINS W/ FOLIC ACID TABLET (FP) PO SCH (10:16)
[2016-08-14] MEDS: THIAMINE HCL 100 MG TABLET (FP) PO SCH (23:10)
[2016-08-15] MEDS: PRENATAL VITAMINS W/ FOLIC ACID TABLET (FP) PO SCH (10:32)
[2016-08-15] MEDS: HYDROCHLOROTHIAZIDE 25 MG TABLET (FP) PO SCH (10:32)
[2016-08-15] MEDS ORDERED: PT OWN MED DRAWER 7, Y5N ONE (14:30)
[2016-08-15] MEDS: THIAMINE HCL 100 MG TABLET (FP) PO SCH (21:59)
[2016-08-15] MEDS: diphenhydrAMINE HCL 50 MG CAPSULE PO PRN (21:59)
[2016-08-16] MEDS: PRENATAL VITAMINS W/ FOLIC ACID TABLET (FP) PO SCH (10:44)
[2016-08-16] MEDS: HYDROCHLOROTHIAZIDE 25 MG TABLET (FP) PO SCH (10:45)
[2016-08-16] MEDS: THIAMINE HCL 100 MG TABLET (FP) PO SCH (21:51)
[2016-08-16] MEDS: diphenhydrAMINE HCL 50 MG CAPSULE PO PRN (21:51)
[2016-08-17] MEDS: HYDROCHLOROTHIAZIDE 25 MG TABLET (FP) PO SCH (10:18)
[2016-08-17] MEDS: PRENATAL VITAMINS W/ FOLIC ACID TABLET (FP) PO SCH (10:18)
[2016-08-17] MEDS: diphenhydrAMINE HCL 50 MG CAPSULE PO PRN (21:39)
[2016-08-17] MEDS: THIAMINE HCL 100 MG TABLET (FP) PO SCH (21:39)
--- NOTE | 2016-08-18 08:20 | PN ---
Psychiatric Progress Note Vital Signs: Vital Signs Period Temp Pulse Resp BP Sys/Vasquez Pulse Ox Last 24 Hr 97.3 F 85-96 18-18 151-156/80-81 Date of Session: 08/18/16 Chief Complaint:: Discharge Note HPI: Patient addressing Alcohol and Cocaine Dependence comorbid with Nicotine Dependence ROS: HTN was medically managed Current Medications: Active Medications Generic Name Dose Route Start Last Admin Trade Name Freq PRN Reason Stop Dose Admin Acetaminophen 650 mg 07/22/16 15:57 Tylenol - PO Q4H PRN FEVER OR PAIN Al Hydroxide/Mg Hydroxide 30 ml 07/22/16 15:57 Mylanta Oral Suspension - PO Q6H PRN DYSPEPSIA Diphenhydramine HCl 50 mg 07/22/16 15:57 08/17/16 21:39 Benadryl - PO 50 mg HSMR1 PRN Administration FOR ITCHING Eucalyptus/Menthol/Phenol/Sorbitol 1 each 07/22/16 15:57 Cepastat Lozenge - MM Q4H PRN SORE THROAT Guaifenesin 10 ml 07/22/16 15:57 Robitussin Dm - PO Q6H PRN COUGH Hydrochlorothiazide 25 mg 07/25/16 11:30 08/17/16 10:18 Hctz - PO 25 mg DAILY ANDREW Administration Hydroxyzine Pamoate 50 mg 07/22/16 15:57 Vistaril - PO Q4H PRN AGITATION Ibuprofen 400 mg 07/22/16 15:57 07/22/16 21:51 Motrin - PO 400 mg Q6H PRN Administration PAIN Loperamide HCl 4 mg 07/22/16 15:57 Imodium - PO Q6H PRN DIARRHEA Magnesium Hydroxide 30 ml 07/22/16 15:57 Milk Of Magnesia - PO DAILY PRN CONSTIPATION Multivit/Folic Acid/Iron 1 tab 07/23/16 10:00 08/17/16 10:18 Vitamins (Sjr) - PO 1 tab DAILY ANDREW Administration Pseudoephedrine/Triprolidine 1 combo 07/22/16 15:57 Actifed - PO TID PRN NASAL CONGESTION Thiamine HCl 100 mg 07/22/16 22:00 08/17/16 21:39 Vitamin B1 - PO 100 mg HS ANDREW Administration Current Side Effect: No Lab tests ordered: Yes Lab tests reviewed: Yes Provider note:: Patient will complete this program on 08/19/16. He has met his treatment goals and will continue to address his issues in outpatient treatment at [facility] at [address] [place] [address]. He is stable for discharge on 08/19/16 Total face to face time:: 35 Mental Status Exam - Mental Status Exam Alert and Oriented to: Time, Place, Person Cognitive Function: Fair Patient Appearance: Well Groomed Mood: Hopeful, Euthymic Affect: Appropriate Patient Behavior: Cooperative Speech Pattern: Clear Voice Loudness: Normal Thought Process: Intact Thought Disorder: Not Present Hallucinations: Denies Suicidal Ideation: Denies Homicidal Ideation: Denies Insight/Judgement: Fair Sleep: Fair Appetite: Good Muscle strength/Tone: Normal Gait/Station: Normal Psychiatric Treatment Plan - Problem List (1) Alcohol dependence with uncomplicated withdrawal Current Visit: No (2) Cocaine dependence, uncomplicated Current Visit: No (3) Nicotine dependence Current Visit: No Qualifiers: Nicotine product type: cigarettes Substance use status: in withdrawal Qualified Code(s): F17.213 - Nicotine dependence, cigarettes, with withdrawal (4) HTN (hypertension) Current Visit: No Qualifiers: Hypertension type: essential hypertension Qualified Code(s): I10 - Essential (primary) hypertension Initial treatment plan: Patient will be discharged tomorrow and referred to [facility] for outpatient treatment
[2016-08-18] MEDS: PRENATAL VITAMINS W/ FOLIC ACID TABLET (FP) PO SCH (10:41)
[2016-08-18] MEDS: HYDROCHLOROTHIAZIDE 25 MG TABLET (FP) PO SCH (10:41)
[2016-08-18] MEDS: diphenhydrAMINE HCL 50 MG CAPSULE PO PRN (22:10)
[2016-08-18] MEDS: THIAMINE HCL 100 MG TABLET (FP) PO SCH (22:10)
[2016-08-19 06:56] VITALS: TEMP 98.5
[2016-08-19] MEDS ORDERED: PT OWN MED DRAWER 7, Y5N ONE (10:02)
[2016-08-19] MEDS: PRENATAL VITAMINS W/ FOLIC ACID TABLET (FP) PO SCH (10:03)
[2016-08-19] MEDS: HYDROCHLOROTHIAZIDE 25 MG TABLET (FP) PO SCH (10:03)
[2016-08-19 11:17] VITALS: BP 145/91; PULSE 120
== END 2016-08-19 11:15 | disposition home or self-care (01) | DRG 772 ==
LOC: YASAS 12:53 → Y6N 12:54 → Y3W 12:55
PROVIDERS: ADMIT Psychiatry & Neurology Psychiatry; ATTEND Psychiatry & Neurology Psychiatry
PROC: HZ42ZZZ Group Counseling for Substance Abuse Treatment, Cognitive-Behavioral (ICD-10-PCS; principal; 2016-08-19)
DX: F10.230 Alcohol dependence with withdrawal, uncomplicated (principal); F14.20 Cocaine dependence, uncomplicated; F17.213 Nicotine dependence, cigarettes, with withdrawal; I10 Essential (primary) hypertension
CPT/HCPCS: 36415; 80053